=== PATIENT | female | born 1940 | race Caucasian/White ===

== ENCOUNTER → 2017-02-03 | Outpatient (CLI) | payer MEDICARE, BC, OTHER | LOC: MC.RAD 09:22 | DX: Z12.31 Encounter for screening mammogram for malignant neoplasm of breast (principal) ==

== ENCOUNTER → 2018-02-04 | Outpatient (CLI) | payer MEDICARE, BC, OTHER | LOC: MC.RAD 09:08 | DX: Z12.31 Encounter for screening mammogram for malignant neoplasm of breast (principal) ==

== ENCOUNTER 2018-03-10 12:03 | Day surgery (SDC) | payer MEDICARE, BC, OTHER ==
[~2018-03-10] VITALS: Ht 162.6 cm; Wt 77.9 kg
[2018-03-10] MEDS ORDERED: ZOCOR 80MG80 MG PO (12:42)
[2018-03-10] MEDS ORDERED: PRINZIDE 12.5 M1 TAB PO (12:43)
[2018-03-10] MEDS ORDERED: MULTIPLE VITAMI1 CAP PO (12:43)
[2018-03-10] MEDS ORDERED: ASPIRIN 81M81 MG/TA2 PO (12:44)
[2018-03-10] MEDS ORDERED: EPA FISH OIL1 SGL PO (12:44)
[2018-03-10 12:45] VITALS: BP 125/61; PULSE 77; TEMP 97.7
[2018-03-10] MEDS ORDERED: CLARITIN 1010 MG/TAB PO (12:45)
[2018-03-10 14:20] VITALS: BP 112/75; PULSE 80; TEMP 97.2
[2018-03-10 14:35] VITALS: BP 128/80; PULSE 90
[2018-03-10 14:50] VITALS: BP 112/64; PULSE 88
[2018-03-10 15:05] VITALS: BP 117/63; PULSE 83
== END 2018-03-10 15:19 | disposition home or self-care (01) ==
LOC: SDCO 12:03
DX: Z12.11 Encounter for screening for malignant neoplasm of colon (principal); Z86.010 Personal history of colon polyps; K63.5 Polyp of colon; D12.0 Benign neoplasm of cecum; K64.0 First degree hemorrhoids; K57.30 Diverticulosis of large intestine without perforation or abscess without bleeding; I10 Essential (primary) hypertension; Z79.82 Long term (current) use of aspirin; Z79.899 Other long term (current) drug therapy; E78.00 Pure hypercholesterolemia, unspecified
CPT/HCPCS: J2250; J3010; J7030

== ENCOUNTER → 2019-02-05 | Outpatient (CLI) | payer MEDICARE, BC, OTHER ==
[~2019-02-05] MED LIST: ASPIRIN 81M81 MG/TA2 PO; CLARITIN 1010 MG/TAB PO; EPA FISH OIL1 SGL PO; MULTIPLE VITAMI1 CAP PO; PRINZIDE 12.5 M1 TAB PO; ZOCOR 80MG80 MG PO
== END ==
LOC: MC.RAD 09:19
DX: Z12.31 Encounter for screening mammogram for malignant neoplasm of breast (principal); N63.20 Unspecified lump in the left breast, unspecified quadrant

== ENCOUNTER → 2019-02-10 | Outpatient (CLI) | payer MEDICARE, BC, OTHER | LOC: MC.RAD 12:16 | DX: N60.02 Solitary cyst of left breast (principal) ==

== ENCOUNTER → 2020-03-14 | Outpatient (CLI) | payer MEDICARE, BC, OTHER | LOC: MC.RAD 09:29 | DX: Z12.31 Encounter for screening mammogram for malignant neoplasm of breast (principal) ==